=== PATIENT | female | born 1990 | race Caucasian/White ===

== ENCOUNTER 2019-08-25 09:35 | Inpatient (IN) | payer OTHER ==
[2019-08-25 10:24] LABS: APPEARANCE,URINE CLOUDY; BILIRUBIN,URINE NEGATIVE (NEGATIVE); COLOR,URINE YELLOW; GLUCOSE, URINE NEGATIVE (NEGATIVE); KETONES,URINE NEGATIVE (NEGATIVE); LEUKOCYTE ESTERASE,URINE MODERATE (NEGATIVE); NITRITE,URINE NEGATIVE (NEGATIVE); PROTEIN,URINE 30 mg/dL (NEGATIVE); URINE SPECIFIC GRAVITY 1.016; UROBILINOGEN,URINE NEGATIVE mg/dL (<2.0)
[2019-08-25] MEDS ORDERED: MISOPROSTOL 0.2 MG TABLET ONE (10:35)
[2019-08-25] MEDS ORDERED: LIDOCAINE 1% INJ-PF (10 MG/ML) 30 ML SDV ONE (10:35)
[2019-08-25] MEDS ORDERED: OXYTOCIN 10 UNIT/ML VIAL ONE (10:35)
[2019-08-25] MEDS ORDERED: OXYTOCIN/0.9 % SODIUM CHLORIDE 30 UNIT/500 ML RTUINJ ONE (10:36)
[2019-08-25] MEDS ORDERED: RINGERS SOLUTION,LACTATED 1,000 ML IV ONE (10:38)
[2019-08-25] MEDS ORDERED: RINGERS SOLUTION,LACTATED 1,000 ML IV PRN (10:38)
[2019-08-25] MEDS ORDERED: OXYTOCIN/0.9 % SODIUM CHLORIDE 30 UNIT/500 ML RTUINJ IV PRN ×2 (10:41→20:34)
[2019-08-25 10:45] LABS: URINE AMPHETAMINES SCREEN NEGATIVE; URINE BARBITURATES SCREEN NEGATIVE; URINE BENZODIAZEPINES SCREEN NEGATIVE; URINE COCAINE SCREEN NEGATIVE; URINE MARIJUANA (THC) SCREEN NEGATIVE; URINE METHADONE SCREEN NEGATIVE; URINE PHENCYCLIDINE SCREEN NEGATIVE
--- NOTE | 2019-08-25 10:52 | Admission Physical ---
Datetime Report Generated by CPN: 08/25/2019 10:52 CURRENT ADMISSION Hx Assessment: The History has been Reviewed and is Current Chief Complaint: Suspected Ruptured Membranes Indication for Induction- Other: SROM Admit Impression : Term, Intrauterine ; No Active Labor; Ruptured Membranes Admit Plan: Admit to Unit; Initiate Labor Augmentation Protocol ALLERGIES Medication Allergies: No Medication Allergies: No Known Allergies (08/25/2019) Latex: No Latex Allergies OBSTETRICAL HISTORY EDC: 09/05/2019 00:00 : 2 Para: 1 Term: 1 : 1 SAB: 1 IAB: 1 Ectopic: 0 Livin Cesareans: 0 VBACs: 0 Multiple Births: 0 Gestational Diabetes: No Rh Sensitization: No Incompetent Cervix: No KASSANDRA: No Infertility: No ART Treatment: No Uterine Anomaly: No IUGR: No Hx Previous C/S: No Macrosomia: No Hx Loss/Stillborn: No PIH: No Hx : No Placenta Previa/Abruption: No Depression/PP Depression: No PTL/PROM: No Post Hemorrhage: No Current Procedures: Ultrasound; NST Obstetrical History Comments: G1: 2009, female vaginal 6lbs 5 oz G2: current SEE RECORDS Alcohol: No Marijuana : No Cocaine: No Other Illicit Drugs: No Cigarettes: Never Smoker. [id number] MEDICAL HISTORY Diabetes: No Blood Transfusion: No Pulmonary Disease (Asthma, TB): No Breast Disease: No Hypertension: No Tub Operator Surgery: Yes Heart Disease: No Hosp/Surgery: Yes Autoimmune Disorder: No Anesthetic Complications: No Kidney Disease: No Abnormal Pap Smear: No Neuro/Epilepsy: No Psychiatric Disorders: No Other Medical Diseases: No Hepatitis/Liver Disease: No Significant Family History: No Varicosities/Phlebitis: No Trauma/Violence : No Thyroid Dysfunction: No Medical History Comments: cholesectomy INFECTIOUS HISTORY Gonorrhea: No Genital Herpes: No Chlamydia: No Tuberculosis: No Syphilis: No Hepatitis: No HIV/AIDS Exposure: No Rash or Viral Illness: No HPV: No PHYSICAL EXAM General: Normal HEENT: Normal Neurologic: Normal Thyroid: Normal Heart: Normal Lungs: Normal Breast: Deferred Back: Normal Abdomen: Normal Genitourinary Exam: Normal Extremities: Normal DTRs: Normal Pelvic Type: Not Done Physical Exam Comments: GBS neg, 38.2 weeks Vital Signs: Reviewed MEMBRANES Membranes: Ruptured FETUS A EGA: 38.3 Monitoring: External US Variability: Moderate 6-25bpm Accelerations: 15X15 Decelerations: None FHR Category: Category I Admit Comment: Admitef to LD after being seen in office, leaking of fluid, Amnisure +, had a baby 10 years ago, NKA, GBS neg, POC disussed with pt, no uc's, will start Pitocin and avoid vaginal exams, desires epidural and plans to breastfeed PLANS FOR LABOR AND DELIVERY Labor and Delivery: None Pain Management: Epidural Feeding Preference: Breast Benefit of Breast Feed Discussed: Yes Circumcision: N/A INFORMED CONSENT Assignment: Poncho Garcia MD Signature: with User ID: [email or web address] : with User ID: [email or web address]
[2019-08-25 11:32] LABS: ABSOLUTE EOSINOPHILS # (AUTO) 0.1 10^3/uL (0.0-0.6); ABSOLUTE LYMPHOCYTES (AUTO) 1.5 10^3/uL (0.5-4.7); ABSOLUTE MONOCYTES (AUTO) 0.5 10^3/uL (0.1-1.4); ABSOLUTE NEUT (AUTO) 5.9 10^3/uL (1.7-8.2); BASOPHILS % (AUTO) 0.6 % (0-2); EOSINOPHILS % (AUTO) 0.8 % (0-6); HEMATOCRIT 35.5 % (36.0-47.0); HEMOGLOBIN 12.3 g/dL (12.0-15.5); LYMPHOCYTES % (AUTO) 18.7 % (13-45); MEAN CORPUSCULAR HEMOGLOBIN 30.5 pg (27.0-33.4); MEAN CORPUSCULAR HGB CONC 34.6 g/dL (32.0-36.0); MEAN CORPUSCULAR VOLUME 88 fl (80-97); MONOCYTES % (AUTO) 6.3 % (3-13); PLATELET COUNT 199 10^3/uL (150-450); RED BLOOD COUNT 4.03 10^6/uL (3.72-5.28); SEGMENTED NEUTROPHILS % (AUTO) 73.6 % (42-78); TOTAL CELLS COUNTED % (AUTO) 100 %
[2019-08-25] MEDS ORDERED: EPHEDRINE SULFATE INJ 50 MG/1 ML AMPULE ONE (17:12)
[2019-08-25] MEDS ORDERED: FENTANYL CITRATE INJ/PF 100 MCG/2 ML AMPUL ONE (17:12)
[2019-08-25] MEDS ORDERED: BUPIVACAINE HCL 0.25 % INJ/PF (2.5 MG/1 ML) 30 ML VIAL ONE (17:13)
[2019-08-25] MEDS ORDERED: FENTANYL/BUPIVACAINE/NS/PF 0 MCG/0 ML RTUINJ EPI ONE (17:13)
[2019-08-25] MEDS ORDERED: FENTANYL/BUPIVACAINE/NS/PF 300 MCG/150 ML RTUINJ EPI ONE (18:27)
[2019-08-25] MEDS ORDERED: DIBUCAINE 1% OINTMENT 28 GM TP PRN (20:34)
[2019-08-25] MEDS ORDERED: NA PHOS,M-B/NA PHOS,DI-BA (ADULT) 133 ML ENEMA PR PRN (20:34)
[2019-08-25] MEDS ORDERED: MAGNESIUM HYDROXIDE SUSP 30 ML UDCUP PO PRN (20:34)
[2019-08-25] MEDS ORDERED: ACETAMINOPHEN WITH CODEINE #3 TABLET PO PRN (20:34)
[2019-08-25] MEDS ORDERED: PROMETHAZINE HCL 25 MG SUPP.RECT PR PRN (20:34)
[2019-08-25] MEDS ORDERED: PSEUDOEPHEDRINE HCL 30 MG TABLET PO PRN (20:34)
[2019-08-25] MEDS ORDERED: ACETAMINOPHEN 650 MG SUPP.RECT PR PRN (20:34)
[2019-08-25] MEDS ORDERED: MEASLES,MUMPS&RUBELLA VACC/PF 0.5 ML VIAL SUBCUT PRN (20:34)
[2019-08-25] MEDS ORDERED: DIPH/PERTUSS(ACELL)/TETANUS VAC/PF 0.5 ML SYR (>=10YO) IM PRN (20:34)
[2019-08-25] MEDS ORDERED: ZOLPIDEM TARTRATE 5 MG TABLET PO PRN (20:34)
[2019-08-25] MEDS ORDERED: GLYCERIN/WITCH HAZEL LEAF 1 EACH MED..WIPE TP PRN (20:34)
[2019-08-25] MEDS ORDERED: PROMETHAZINE HCL INJ 25 MG/1 ML VIAL IV PRN (20:34)
[2019-08-25] MEDS ORDERED: DIPHENHYDRAMINE HCL 25 MG CAPSULE PO PRN (20:34)
[2019-08-25] MEDS ORDERED: BENZOCAINE/MENTHOL AEROSOL SPRAY 56 ML TOP PRN (20:34)
[2019-08-25] MEDS ORDERED: PROMETHAZINE HCL 25 MG TABLET PO PRN (20:34)
--- NOTE | 2019-08-25 21:58 | Delivery Summary ---
Del Sum A-C Datetime Report Generated by CPN: 08/25/2019 21:58 DELIVERY PERSONNEL DELIVERY PERSONNEL: [id number] Delivery Doctor:: Poncho Garcia MD Labor and Delivery Nurse:: Lani Pandya RNlogging truck driver Nurse:: Viri Langston RN Nursery Nurse:: Keyla Key RN Nursery Nurse:: Domi Arellano RN MATERNAL INFORMATION Delivery Anesthesia: Epidural Medications After Delivery: Pitocin 30 Units in 500ml NS/D5W Delivery QBL: 100 Maternal Complications: Premature Rupture of Membranes LABOR SUMMARY EDC: 09/05/2019 00:00 No. Babies in Womb: 1 Attempted: No Labor Anesthesia: Epidural LABOR INFORMATION Reason for Induction: Premature Rupture of Membranes Onset of Labor: 08/25/2019 17:58 Complete Dilatation: 08/25/2019 19:40 Oxytocin: Induction Group B Beta Strep: negative Antibiotics # of Doses: N/A Antibiotics Time of Last Dose: N/A Name of Antibiotic Given: N/A Steroids Given: None Reason Steroids Not Administered: Not Applicable MEMBRANES Membranes Rupture Method: Spontaneous Rupture of Membranes: 08/25/2019 06:30 Length of Rupture (hr): 13.92 Amniotic Fluid Color: Light Meconium Amniotic Fluid Amount: Small Amniotic Fluid Odor: None STAGES OF LABOR Stage 1 hr: 1 Stage 1 min: 42 Stage 2 hr: 0 Stage 2 min: 45 Stage 3 hr: 0 Stage 3 min: 2 Total Time in Labor hr: 2 Total Time in Labor min: 29 VAGINAL DELIVERY Episiotomy: None Laceration #1: None Laceration Extension #1: N/A Laceration Repair: Not Applicable Sponge Count Correct: Yes Sharps Count Correct: Yes CSECTION DELIVERY Primary Indication: N/A Secondary Indication: N/A CSection Incidence: N/A Labor: N/A Elective: N/A CSection Incision: N/A BABY A INFORMATION Delivery Date/Time: 08/25/2019 20:25 Method of Delivery: Vaginal Nurse Controlled Delivery: No Born in Route : No : N/A Forceps: N/A Vacuum Extraction: N/A Shoulder Dystocia : No PRESENTATION/POSITION BABY A Presentation: Cephalic Cephalic Presentation: Vertex Vertex Position: OP Breech Presentation: N/A PLACENTA INFORMATION BABY A Placenta Delivery Time : 08/25/2019 20:27 Placenta Method of Delivery: Spontaneous Placenta Status: Delivered SCORES BABY A Heart Rate 1 min: >100 bpm Resp Effort 1 min: Good Cry Reflex Irritability 1 min: Cough or Sneeze or Pulls Away Muscle Tone 1 min: Active Motion Color 1 min: Blue/Pale SCORE 1 MIN: 8 Heart Rate 5 min: >100 bpm Resp Effort 5 min: Good Cry Reflex Irritability 5 min: Cough or Sneeze or Pulls Away Muscle Tone 5 min: Active Motion Color 5 min: Body [place], Extremities Blue SCORE 5 MIN: 9 INFANT INFORMATION BABY A Gestational Age at Delivery: 38.3 Gestational Status: Early Term- 37- 38.6 Weeks Infant Outcome : Liveborn Infant Condition : Stable Sex: Female IDENTIFICATION BABY A Infant Verification Date/Time: 08/25/2019 20:32 ID Band Number: [id number] Mother's Name Verified: Yes Infant RN Verifying : Irineo Brooks, RN/ D Bellekvin, RNC CORD INFORMATION BABY A No. Cord Vessels: 3 Nuchal Cord : Around Neck x1, Tight Cord Blood Taken: Yes-For Eval (Mom's Blood Type - or O+) Infant Suction: Mouth ASSESSMENT BABY A Infant Complications: None Physical Findings at Delivery: Within Normal Limits Skin to Skin: Yes Skin to Skin Time (min): 30 Transferred To: Remains with Mother BABY B INFORMATION : N/A SIGNATURES Signature: with User ID: [email or web address]
[2019-08-25] MEDS: IBUPROFEN 800 MG TABLET PO SCH (23:41)
[2019-08-25] MEDS: FAMOTIDINE 20 MG TABLET PO SCH (23:41)
[2019-08-26] MEDS: IBUPROFEN 800 MG TABLET PO SCH ×3 (05:21→22:13)
[2019-08-26 08:04] LABS: HEMATOCRIT 29.4 % (36.0-47.0); MEAN CORPUSCULAR HEMOGLOBIN 30.1 pg (27.0-33.4); MEAN CORPUSCULAR HGB CONC 34.2 g/dL (32.0-36.0); MEAN CORPUSCULAR VOLUME 88 fl (80-97); PLATELET COUNT 176 10^3/uL (150-450); RED BLOOD COUNT 3.34 10^6/uL (3.72-5.28); WHITE BLOOD COUNT 14.2 10^3/uL (4.0-10.5)
[2019-08-26 08:05] LABS: HEMOGLOBIN 10.1 g/dL (12.0-15.5)
[2019-08-26] MEDS: FAMOTIDINE 20 MG TABLET PO SCH ×2 (09:57→22:13)
[2019-08-26] MEDS: FERROUS SULFATE 325 MG TABLET PO SCH ×2 (09:57→17:45)
[2019-08-26] MEDS: SENNOSIDES/DOCUSATE 8.6-50 MG 1 EACH TABLET PO SCH (09:57)
[2019-08-26] MEDS: DOCUSATE SODIUM 100 MG CAPSULE PO SCH ×2 (09:57→17:45)
[2019-08-26] MEDS: PRENATAL VITAMIN W DHA CAPSULE PO SCH (09:57)
--- NOTE | 2019-08-26 10:12 | PDOC PROGRESS REPORT ---
Subjective-OB Progress Note for:: 08/26/19 - PP Day #1, doing well, UOB, voiding, O+, Rubella immune Physical Exam (OB) Vital Signs: Temp Pulse Resp BP Pulse Ox 97.9 F 67 16 108/70 99 08/26/19 08:05 08/26/19 08:05 08/26/19 08:05 08/26/19 08:05 08/26/19 08:05 Intake & Output 08/25/19 08/26/19 08/27/19 06:59 06:59 06:59 Intake Total 500 Balance 500 Weight 76.5 kg - General General Appearance: Appears well, Alert - PIH/Pre-Eclampsia Clonus: Negative Headache: Absent Epigastric Pain: No Visual Changes: No - Lochia Lochia Amount: Scant < 10 ml Lochia Color: Rubra/Red - Abdomen Description: Soft Hernia Present: No Fundal Description: Firm, Midline Fundal Height: u/u - u/2 - Respiratory Respiratory Status: No respiratory distress - Abdominal Distension: No distension Tenderness: Nontender - Genitourinary Genitourinary Note: voiding - Extremities Upper extremity: Normal inspection Lower extremities: Normal inspection - Neurological Cognition: Normal Orientation: AAOx4 - Skin Skin Temperature: Warm Skin Moisture: Dry Objective-Diagnostic Laboratory: 08/26/19 07:27 08/25/19 08/25/19 08/25/19 09:49 11:17 11:17 WBC 8.0 RBC 4.03 Hgb 12.3 Hct 35.5 L MCV 88 MCH 30.5 MCHC 34.6 RDW 13.0 Plt Count 199 Seg Neutrophils % 73.6 Urine Color YELLOW Urine Appearance CLOUDY Urine pH 6.0 Ur Specific [place] 1.016 Urine Protein 30 H Urine Glucose (UA) NEGATIVE Urine Ketones NEGATIVE Urine Blood SMALL H Urine Nitrite NEGATIVE Ur Leukocyte Esterase MODERATE H Blood Type O POSITIVE Antibody Screen NEGATIVE 08/26/19 07:27 WBC 14.2 H RBC 3.34 L Hgb 10.1 L D Hct 29.4 L MCV 88 MCH 30.1 MCHC 34.2 RDW 13.0 Plt Count 176 Seg Neutrophils % Urine Color Urine Appearance Urine pH Ur Specific [place] Urine Protein Urine Glucose (UA) Urine Ketones Urine Blood Urine Nitrite Ur Leukocyte Esterase Blood Type Antibody Screen Assessment and Plan(PN) - Assessment and Plan (1) (normal spontaneous vaginal delivery) Is this a current diagnosis for this admission?: Yes Plan:: routine PP orders, ambulation encouraged - Time Spent with Patient Time with patient: Less than 15 minutes Medications reviewed and adjusted accordingly: Yes - Disposition Anticipated Discharge: Home Within: within 24 hours
[2019-08-26] MEDS ORDERED: DEXTROSE 5%-LACTATED RINGERS 1,000 ML IV PRN (15:01)
[2019-08-27] MEDS: IBUPROFEN 800 MG TABLET PO SCH (05:15)
[2019-08-27] MEDS: FAMOTIDINE 20 MG TABLET PO SCH (09:41)
[2019-08-27] MEDS: PRENATAL VITAMIN W DHA CAPSULE PO SCH (09:41)
[2019-08-27] MEDS: FERROUS SULFATE 325 MG TABLET PO SCH (09:41)
[2019-08-27] MEDS: SENNOSIDES/DOCUSATE 8.6-50 MG 1 EACH TABLET PO SCH (09:41)
[2019-08-27] MEDS: DOCUSATE SODIUM 100 MG CAPSULE PO SCH (09:42)
[2019-08-27 11:29] VITALS: BP 144/77
--- NOTE | 2019-08-27 11:40 | PDOC DISCHARGE SUMMARY ---
Impression - Admit/DC Date/PCP Admission Date/Primary Care Provider: 08/25/19 10:23 NO LOCALMD Discharge Date: 08/27/19 - Discharge Diagnosis (1) Acute blood loss anemia Is this a current diagnosis for this admission?: Yes (2) (normal spontaneous vaginal delivery) Is this a current diagnosis for this admission?: Yes - Assessment Summary: 29yo s/p ppd 2, stable and ready for discharge. Understands warning s/s. No concerns today. - Additional Information Resuscitation Status: Full Code Discharge Diet: As Tolerated Discharge Activity: Activity As Tolerated, Balance Activity w/Rest, No Lifting Over 10 Pounds, Pelvic Rest, No tub bath, Walk Frequently Referrals: [facility] [Provider Group] (Follow up in 4 weeks for your post evaluation. Call the office and make an appointment. ) Prescriptions: Ibuprofen [Motrin 800 mg Tablet] 800 mg PO Q8HP PRN #20 tablet PRN Reason: Abdominal Cramping Docusate Sodium [Colace 100 mg Capsule] 100 mg PO BID #60 capsule Ferrous Sulfate [Feosol 325 mg Tablet] 325 mg PO BID #60 tablet Home Medications: Vitamin [-U Multiple Vitamin Capsule] 1 cap PO DAILY 08/25/19 Docusate Sodium [Colace 100 mg Capsule] 100 mg PO BID #60 capsule 08/27/19 Ferrous Sulfate [Feosol 325 mg Tablet] 325 mg PO BID #60 tablet 08/27/19 Ibuprofen [Motrin 800 mg Tablet] 800 mg PO Q8HP PRN #20 tablet 08/27/19 Results Laboratory Results: WBC 14.2 10^3/uL (4.0-10.5) H 08/26/19 07:27 RBC 3.34 10^6/uL (3.72-5.28) L 08/26/19 07:27 Hgb 10.1 g/dL (12.0-15.5) L D 08/26/19 07:27 Hct 29.4 % (36.0-47.0) L 08/26/19 07:27 MCV 88 fl (80-97) 08/26/19 07:27 MCH 30.1 pg (27.0-33.4) 08/26/19 07:27 MCHC 34.2 g/dL (32.0-36.0) 08/26/19 07:27 RDW 13.0 % (11.5-14.0) 08/26/19 07:27 Plt Count 176 10^3/uL (150-450) 08/26/19 07:27 Lymph % (Auto) 18.7 % (13-45) 08/25/19 11:17 [place] % (Auto) 6.3 % (3-13) 08/25/19 11:17 Eos % (Auto) 0.8 % (0-6) 08/25/19 11:17 Baso % (Auto) 0.6 % (0-2) 08/25/19 11:17 Absolute Neuts (auto) 5.9 10^3/uL (1.7-8.2) 08/25/19 11:17 Absolute Lymphs (auto) 1.5 10^3/uL (0.5-4.7) 08/25/19 11:17 Absolute Monos (auto) 0.5 10^3/uL (0.1-1.4) 08/25/19 11:17 Absolute Eos (auto) 0.1 10^3/uL (0.0-0.6) 08/25/19 11:17 Absolute Basos (auto) 0.0 10^3/uL (0.0-0.2) 08/25/19 11:17 Seg Neutrophils % 73.6 % (42-78) 08/25/19 11:17 Urine Color YELLOW 08/25/19 09:49 Urine Appearance CLOUDY 08/25/19 09:49 Urine pH 6.0 (5.0-9.0) 08/25/19 09:49 Ur Specific [place] 1.016 08/25/19 09:49 Urine Protein 30 mg/dL (NEGATIVE) H 08/25/19 09:49 Urine Glucose (UA) NEGATIVE mg/dL (NEGATIVE) 08/25/19 09:49 Urine Ketones NEGATIVE mg/dL (NEGATIVE) 08/25/19 09:49 Urine Blood SMALL (NEGATIVE) H 08/25/19 09:49 Urine Nitrite NEGATIVE (NEGATIVE) 08/25/19 09:49 Urine Bilirubin NEGATIVE (NEGATIVE) 08/25/19 09:49 Urine Urobilinogen NEGATIVE mg/dL (<2.0) 08/25/19 09:49 Ur Leukocyte Esterase MODERATE (NEGATIVE) H 08/25/19 09:49 Urine Ascorbic Acid NEGATIVE (NEGATIVE) 08/25/19 09:49 Membranes Rupture POSITIVE (NEGATIVE) H 08/25/19 09:49 Urine Opiates Screen NEGATIVE 08/25/19 09:49 Urine Methadone Screen NEGATIVE 08/25/19 09:49 Ur Barbiturates Screen NEGATIVE 08/25/19 09:49 Ur Phencyclidine Scrn NEGATIVE 08/25/19 09:49 Ur Amphetamines Screen NEGATIVE 08/25/19 09:49 U Benzodiazepines Scrn NEGATIVE 08/25/19 09:49 Urine Cocaine Screen NEGATIVE 08/25/19 09:49 U Marijuana (THC) Screen NEGATIVE 08/25/19 09:49 RPR NONREACTIVE (NONREACTIVE) 08/25/19 11:17 Blood Type O POSITIVE 08/25/19 11:17 Antibody Screen NEGATIVE 08/25/19 11:17
== END 2019-08-27 13:26 | disposition home or self-care (01) | DRG 807 ==
LOC: LC 09:35 → LR 10:23 → 2S 22:32 → UNDODISIN 08-26 15:15
PROVIDERS: ADMIT Obstetrics & Gynecology Gynecology; ATTEND Obstetrics & Gynecology Gynecology
PROC: 10E0XZZ Delivery of Products of Conception, External Approach (ICD-10-PCS; principal; 2019-08-25)
DX: O42.02 Full-term premature rupture of membranes, onset of labor within 24 hours of rupture (principal); Z37.0 Single live birth; O69.1XX0 Labor and delivery complicated by cord around neck, with compression, not applicable or unspecified; Z3A.38 38 weeks gestation of pregnancy
CPT/HCPCS: 1967; 36415; 80307; 81005; 84112; 85025; 85027; 86592; 86850; 86900; 86901; 94760; J2590; J3010; J3490